=== PATIENT | female | born 1985 | race African-American/Black ===

== ENCOUNTER 2020-11-20 21:03 | Emergency (ER) | payer MEDICAID ==
[~2020-11-20] VITALS: Ht 170.2 cm; Wt 73.0 kg
[2020-11-20 21:05] VITALS: BP 148/92
[2020-11-20] MEDS ORDERED: DIPHENHYDRAMINE 50MG/ML VIAL IV ONE (21:30)
[2020-11-20] MEDS ORDERED: FAMOTIDINE 20MG/2ML VIAL IV ONE (21:30)
[2020-11-20] MEDS ORDERED: METHYLPREDNISOLONE SOD SUCC 125 MG/2 ML VIAL IV ONE (21:30)
[2020-11-20] MEDS ORDERED: PREDNISONE 20MG TABLET PO ONE (22:45)
[2020-11-20] MEDS ORDERED: DIPHENHYDRAMINE 50MG CAPSULE PO ONE (22:45)
[2020-11-20] MEDS ORDERED: FAMOTIDINE 20MG TABLET PO ONE (22:45)
== END 2020-11-20 22:59 | disposition home or self-care (01) ==
LOC: ER 21:03
DX: R07.89 Other chest pain (principal); R21 Rash and other nonspecific skin eruption
CPT/HCPCS: 71045; 99284; J7512; Q0163